=== PATIENT | male | born 1980 | race Caucasian/White ===

== ENCOUNTER 2022-05-21 13:59 | Emergency (ER) | payer MEDICAID ==
[~2022-05-21 13:59] MED LIST: BACTRIM DS TAB1 EACH PO
[2022-05-21 14:54] LABS: INFLUENZA A NAA NEGATIVE (NEGATIVE)
[2022-05-21 14:57] LABS: CORONAVIRUS 2019 SARS-COV-2 POSITIVE (NEGATIVE)
[2022-05-22] MEDS ORDERED: PREDNISONE 20MG20 MG PO (03:33)
== END 2022-05-21 16:20 | disposition left against medical advice (07) ==
LOC: FER 13:59
PROVIDERS: Emergency Medicine
DX: U07.1 COVID-19 (principal); M79.601 Pain in right arm; Z53.21 Procedure and treatment not carried out due to patient leaving prior to being seen by health care provider; Z28.310 Unvaccinated for COVID-19
CPT/HCPCS: 71046; U0002

== ENCOUNTER 2022-05-22 01:40 | Emergency (ER) | payer MEDICAID ==
[2022-05-22 02:11] LABS: BASOPHIL 0.3 % (0-2); EOSINOPHIL 0.6 % (0-5); HCT 38.9 % (42.0-52.0); HGB 13.1 g/dl (13.2-18.0); MCH 32.3 pg (25.0-31.0); MCHC 33.7 g/dL (32.0-36.0); MCV 95.8 fL (78.0-100.0); MONOCYTE 10.6 % (0-12); MPV 9.8 fL (6.0-9.5); NEUTROPHIL 74.2 % (41-80); NRBC 0; PLT 187 K/uL (150-400); RBC 4.06 M/uL (4.70-6.00); RDW 13.4 % (11.5-14.0); WBC 3.6 K/uL (4.0-10.5)
[2022-05-22 02:29] LABS: ALBUMIN 3.2 g/dL (3.4-5.0); BILIRUBIN - TOTAL 0.2 mg/dL (0.2-1.0); BUN/CREAT RATIO (CALC) 17.4 RATIO; CREATININE 0.86 mg/dL (0.67-1.17); GLOBULIN (CALCULATION) 2.9 g/dL; POTASSIUM 3.9 mmol/L (3.5-5.1); TOTAL PROTEIN 6.1 g/dL (6.4-8.2)
[2022-05-22] MEDS ORDERED: PREDNISONE 20MG20 MG PO (03:33)
== END 2022-05-22 03:40 | disposition home or self-care (01) ==
LOC: FER 01:40
PROVIDERS: Internal Medicine
DX: U07.1 COVID-19 (principal); F17.210 Nicotine dependence, cigarettes, uncomplicated
CPT/HCPCS: 36415; 80053; 83605; 84145; 85025; 96372; J1100; J1885; J2765; J3030; J3475; J7030